=== PATIENT | male | born 1965 | race Caucasian/White ===

== ENCOUNTER → 2016-11-11 | Outpatient (CLI) | payer OTHER ==
[~2016-11-11] MED LIST: AMLO5TAB2 PO; AMOX500T PO; BACT800T5 PO; OMEP20TA PO; PRED50 PO; RANI150T PO
[2016-11-11 09:21] LABS: HEMATOCRIT 48.1 % (39.0-51.0); MEAN CELL VOLUME 97.9 FL (80.0-100.0); MEAN CORPUSCULAR HEMOGLOBIN 34.8 PG (27.0-34.0); MEAN CORPUSCULAR HGB CONC 35.6 % (32.0-36.0); PLATELET COUNT 214 TH/MM3 (150-450); RED BLOOD COUNT 4.91 MIL/MM3 (4.50-5.90); RED CELL DISTRIBUTION WIDTH 13.6 % (11.6-17.2); REVIEW FLAG FINAL; WHITE BLOOD COUNT 7.1 TH/MM3 (4.0-11.0)
[2016-11-11 10:02] LABS: ALKALINE PHOSPHATASE 122 U/L (45-117); ALT (GPT) 93 U/L (12-78); ANION GAP 9 MEQ/L (5-15); AST (GOT) 47 U/L (15-37); BICARBONATE 26.8 MEQ/L (21.0-32.0); BLOOD UREA NITROGEN 11 MG/DL (7-18); CHLORIDE 102 MEQ/L (98-107); GLOMERULAR FILTRATION RATE 68 ML/MIN (>89); GLUCOSE,FASTING 120 MG/DL (74-99); POTASSIUM 4.4 MEQ/L (3.5-5.1); SODIUM (NA) 138 MEQ/L (136-145); TOTAL BILIRUBIN ADULT 0.7 MG/DL (0.2-1.0)
== END ==
LOC: CLAB 09:01
PROVIDERS: ATTEND Nurse Practitioner Family
DX: F10.10 Alcohol abuse, uncomplicated (principal); K21.9 Gastro-esophageal reflux disease without esophagitis; Z72.0 Tobacco use
CPT/HCPCS: 36415; 80053; 85027

== ENCOUNTER 2016-11-23 21:59 | Emergency (ER) | payer OTHER ==
[~2016-11-23] VITALS: Ht 175.3 cm; Wt 82.0 kg
[~2016-11-23 21:59] MED LIST changes: -AMLO5TAB2 PO; -BACT800T5 PO; -RANI150T PO
[2016-11-23 22:00] VITALS: BP 164/99; PULSE 92; RESP 18; TEMP 97.7; O2SAT 96
--- NOTE | 2016-11-23 22:21 | PD ---
Physical Exam Time Seen by Provider: 22:20 Narrative 51 y/o male presents with foreign body sensation, dysphagia in the lower esophagus. [employer] he was eating some steak when he had the sensation of esophageal obstruction. He has had this issue several times in the past. vss Seen at triage desk. Awaiting bed placement. Data Data Last Documented VS Vital Signs Date Time Temp Pulse Resp B/P Pulse Ox O2 Delivery O2 Flow Rate FiO2 11/23/16 22:00 97.7 92 18 164/99 96 Room Air [facility] Medical Record Reviewed: Yes Supervised Visit with SPENCER: Teto Sarah November 23, 2016 22:21
[2016-11-23] MEDS ORDERED: MORPHINE SULFATE 4 MG/ML INJ IV PUSH ONE (22:30)
[2016-11-23] MEDS ORDERED: GLUCAGON 1 MG/ML VIAL IV PUSH ONE ×2 (22:30→23:30)
[2016-11-23] MEDS ORDERED: ONDANSETRON HCL 4 MG/2 ML VIAL IV PUSH ONE (22:30)
--- NOTE | 2016-11-23 22:34 | PD ---
HPI . Esophageal foreign body Chief Complaint: Foreign Body Time Seen by Provider: 22:24 Travel History International Travel<30 days: No Contact w/Intl Traveler<30days: No Traveled to known affect area: No History of Present Illness HPI Patient presents with an esophageal foreign body. It is a piece of steak. It has been present for 1.5 hours. Symptoms are severe in that he is unable to swallow his own secretions. No exacerbating or relieving factors. Patient reports a previous similar history 5-6. He states that he is sometimes successfully treated conservatively but has had to have an emergent EGD done twice. He states that he has never followed up with gastroenterology following the acute obstruction because he does not have any insurance. He states this been several years since he had an issue with obstruction. PFSH Past Medical History Hx Anticoagulant Therapy: No Diminished Hearing: No Past Surgical History Pacemaker: No Social History Alcohol Use: Yes (OCCASIONAL) Tobacco Use: Yes (1 PPD) Substance Use: Yes (AT TIMES MARIJUANA /COCAINE) Allergies-Medications (Allergen,Severity, Reaction): Coded Allergies: Bee Sting (Verified Allergy, Intermediate, Swelling, 11/23/16) Bactrim (Verified Allergy, Unknown, Itching, 11/23/16) Lortab (Verified Adverse Reaction, Mild, Itching, 11/23/16) Reported Meds & Prescriptions Reported Meds & Active Scripts Active Reported Omeprazole 20 Mg Tab 20 Mg PO EVERY OTHER DAY Review of Systems Except as stated in HPI: all other systems reviewed are Neg Gastrointestinal: Positive: Dysphagia, Other (esophageal obstruction) Physical Exam Narrative GENERAL: Patient is up pacing in the room looking pretty uncomfortable. SKIN: Warm and dry. HEAD: Atraumatic. Normocephalic. EYES: Pupils equal and round. Extraocular movements are intact. NECK: Trachea midline. Neck supple. CARDIOVASCULAR: Regular rate and rhythm. RESPIRATORY: No accessory muscle use. MUSCULOSKELETAL: No obvious deformities. No edema. NEUROLOGICAL: Awake and alert. No obvious cranial nerve deficits. Motor grossly within normal limits. Normal speech. PSYCHIATRIC: Appropriate mood and affect; insight and judgment normal. Data Data Last Documented VS Vital Signs Date Time Temp Pulse Resp B/P Pulse Ox O2 Delivery O2 Flow Rate FiO2 11/23/16 22:00 97.7 92 18 164/99 96 Room Air Orders ^ Saline Lock (11/23/16 22:28) Glucagon Inj (Glucagon Inj) (11/23/16 22:30) Morphine Inj (Morphine Inj) (11/23/16 22:30) Ondansetron Inj (Zofran Inj) (11/23/16 22:30) Glucagon Inj (Glucagon Inj) (11/23/16 23:30) Nitroglycerin Sl (Nitrostat Sl) (11/23/16 23:30) MDM Medical Decision Making Medical Screen Exam Complete: Yes Emergency Medical Condition: Yes Medical Record Reviewed: Yes (records reviewed. He was last seen here in 2011 with an esophageal foreign body which was successfully treated with glucagon 1 mg IV.) Differential Diagnosis Differential diagnosis includes complete esophageal obstruction, partial esophageal obstruction, foreign body sensation Narrative Course Patient presents with an esophageal foreign body. He has been successfully treated in the past with glucagon. Therefore, I will start with glucagon. 11:30 PM Patient has had glucagon 1 mg IV with no relief. Patient reports that he has previously needed more than one dose of glucagon and has also been given glucagon in combination with nitroglycerin with good relief. 12:50 AM The foreign body has failed to pass with the second dose of glucagon and sublingual nitroglycerin. I consulted GI. He will see the patient in the emergency department in the morning for EGD. Physician Communication Physician Communication Dr. Murray will see the patient in ED in the morning for EGD. Diagnosis Primary Impression: Esophageal foreign body Qualified Code: T18.108A - Esophageal foreign body, initial encounter Condition: Stable Josselin Armas MD November 23, 2016 22:34
[2016-11-23] MEDS ORDERED: NITROGLYCERIN 0.4 MG SL 25 TABS/BTL SL ONE (23:30)
[2016-11-24] MEDS ORDERED: SODIUM CHLOR 0.9% 1000 ML INJ 1,000 ML IV SCH (01:00)
[2016-11-24 01:13] LABS: AUTOMATED NEUTROPHIL # 3.6 TH/MM3 (1.8-7.7); BASOPHIL # 0.1 TH/MM3 (0-0.2); BASOPHIL % 1.2 % (0.0-2.0); EOSINOPHIL # 0.4 TH/MM3 (0-0.4); EOSINOPHIL % 5.2 % (0.0-4.0); HEMATOCRIT 45.4 % (39.0-51.0); HEMO FLAGS DIFF FINAL; LYMPH % 39.1 % (9.0-44.0); LYMPHOCYTE # 2.9 TH/MM3 (1.0-4.8); MEAN CELL VOLUME 98.1 FL (80.0-100.0); MEAN CORPUSCULAR HGB CONC 35.7 % (32.0-36.0); MONO % 6.2 % (0.0-8.0); NEUT % 48.3 % (16.0-70.0); PLATELET COUNT 198 TH/MM3 (150-450); RED BLOOD COUNT 4.63 MIL/MM3 (4.50-5.90); RED CELL DISTRIBUTION WIDTH 13.3 % (11.6-17.2); WHITE BLOOD COUNT 7.5 TH/MM3 (4.0-11.0)
[2016-11-24 01:14] VITALS: BP 133/93; PULSE 86; RESP 18; O2SAT 99
[2016-11-24 01:48] LABS: POTASSIUM 3.3 MEQ/L (3.5-5.1)
[2017-01-20] MEDS ORDERED: RANI150T PO (09:10)
[2017-01-20] MEDS ORDERED: AMLO5TAB2 PO (09:11)
== END 2016-11-24 03:43 | disposition home or self-care (01) ==
LOC: NEPC 21:59 → NEPD 11-24 03:43
DX: T18.108A Unspecified foreign body in esophagus causing other injury, initial encounter (principal); F17.210 Nicotine dependence, cigarettes, uncomplicated
CPT/HCPCS: 80048; 85025; 96374; 96375; 96376; 99283; J1610; J2270; J2405; J7030

== ENCOUNTER 2017-06-10 14:27 | Emergency (ER) | payer OTHER ==
[~2017-06-10] VITALS: Ht 175.3 cm; Wt 86.0 kg
[~2017-06-10 14:27] MED LIST changes: -AMOX500T PO; +CYCL5TAB PO; +LISI-515 PO; -OMEP20TA PO; +OMEP20TA93 PO; -PRED50 PO; +VARE1PAK3 PO
[2017-06-10 14:29] VITALS: BP 119/79; PULSE 95; RESP 20; TEMP 99.3; O2SAT 98
[2017-06-10] MEDS ORDERED: NABU1TAB37 PO (15:40)
--- NOTE | 2017-06-10 15:44 | PD ---
HPI . Knee pain Chief Complaint: Pain: Acute or Chronic Time Seen by Provider: 15:36 Travel History International Travel<30 days: No Contact w/Intl Traveler<30days: No Traveled to known affect area: No History of Present Illness HPI Patient presents with the chief complaint of bilateral knee pain, right worse than left. He states that it is chronic. It became acutely worse last night. He rates it 10/10. He states that he treated it with a bag of frozen vegetables with no real relief. He did not take any oral medication. There has been no recent trauma. He reports a history of chronic knee pain secondary to old injuries. [facility] Past Medical History Medical History: Denies Significant Hx Hx Anticoagulant Therapy: No Diminished Hearing: No Immunizations Current: No Past Surgical History Surgical History: No Previous Surgery Pacemaker: No Social History Alcohol Use: Yes (OCCASIONAL) Tobacco Use: Yes (1 PPD) Substance Use: Yes (AT TIMES MARIJUANA /COCAINE) Allergies-Medications (Allergen,Severity, Reaction): Coded Allergies: bee venom protein (honey bee) (Unverified Allergy, Intermediate, Swelling , 03/18/17) sulfamethoxazole (Unverified Allergy, Unknown, Itching, 03/18/17) trimethoprim (Unverified Allergy, Unknown, Itching, 03/18/17) acetaminophen (Unverified Adverse Reaction, Mild, Itching, 03/18/17) hydrocodone (Unverified Adverse Reaction, Mild, Itching, 03/18/17) Reported Meds & Prescriptions Reported Meds & Active Scripts Active Nabumetone 500 Mg Tab 500 Mg PO BID Lisinopril 20 Mg Tab 20 Mg PO DAILY Review of Systems Musculoskeletal: Positive: Arthralgias Physical Exam Narrative GENERAL: Awake and alert and in no acute distress. SKIN: Warm and dry. HEAD: Normocephalic/atraumatic. EYES: Pupils are equal. Extraocular movements are intact. NECK: Normal range of motion. CARDIOVASCULAR: Regular rate and rhythm. RESPIRATORY: Nonlabored respirations. MUSCULOSKELETAL: Atraumatic. Knees are not swollen. They do not seem tender to palpation. Flexion-extension is normal. No crepitus palpated. NEUROLOGICAL: Nonfocal. PSYCHIATRIC: Appropriate mood and affect. Data Data Last Documented VS Vital Signs Date Time Temp Pulse Resp B/P (MAP) Pulse Ox O2 Delivery O2 Flow Rate FiO2 06/10/17 14:29 99.3 95 20 119/79 (92) 98 Room Air Orders Orders Ed Discharge Order (06/10/17 15:41) MDM Medical Decision Making Medical Screen Exam Complete: Yes Emergency Medical Condition: Yes Differential Diagnosis Differential diagnosis of joint pain includes but is not limited to arthritis, gout, sprain/strain, fracture, dislocation, bursitis Narrative Course This patient presents with the chief complaint of bilateral knee pain. It is atraumatic. Exam is unremarkable. I will discharge him with a prescription for Relafen and with instructions to follow up at the [facility] clinic for further treatment as needed Diagnosis Primary Impression: Bilateral knee pain Qualified Codes: M25.561 - Pain in right knee; M25.562 - Pain in left knee; G89.29 - Other chronic pain Referrals: [facility] 1 week Patient Instructions: General Instructions, Knee Pain (ED) Departure Forms: Tests/Procedures Scripts Nabumetone (Nabumetone) 500 Mg Tab 500 MG PO BID for Pain-Inflammation, #60 TAB 0 Refills Prov: Josselin Armas MD 06/10/17 Disposition: 01 DISCHARGE HOME Condition: Stable Josselin Armas MD Jun 10, 2017 15:44
== END 2017-06-10 16:03 | disposition home or self-care (01) ==
LOC: NEPK 14:27 → NETRI 16:03
DX: M25.562 Pain in left knee (principal); M25.561 Pain in right knee; G89.29 Other chronic pain; F17.210 Nicotine dependence, cigarettes, uncomplicated; Z79.899 Other long term (current) drug therapy; Z88.2 Allergy status to sulfonamides; Z88.6 Allergy status to analgesic agent; Z88.5 Allergy status to narcotic agent; Z88.8 Allergy status to other drugs, medicaments and biological substances
CPT/HCPCS: 99283

== ENCOUNTER 2017-06-12 14:29 | Emergency (ER) | payer OTHER ==
[~2017-06-12] VITALS: Ht 175.3 cm; Wt 85.5 kg
[~2017-06-12 14:29] MED LIST changes: -CYCL5TAB PO; +NABU1TAB37 PO; -OMEP20TA93 PO; -VARE1PAK3 PO
[2017-06-12 14:31] VITALS: BP 138/90; PULSE 105; RESP 19; TEMP 98.3; O2SAT 96
[2017-06-12] MEDS ORDERED: SODIUM CHLORIDE 0.9% FLUSH 10 ML FLUSH IVF PRN (15:00)
[2017-06-12] MEDS ORDERED: methylPREDNISolone SOD SUCC 125 MG/2 ML VIAL IV PUSH ONE (15:00)
[2017-06-12] MEDS: RESP: ALBUTEROL 2.5 MG/IPRATROPIUM 0.5 MG NEB (SCH) INH (15:06)
--- NOTE | 2017-06-12 15:28 | PD ---
HPI . Chest cold Chief Complaint: Cold / Flu Symptoms Time Seen by Provider: 14:57 Travel History International Travel<30 days: No Contact w/Intl Traveler<30days: No Traveled to known affect area: No History of Present Illness HPI This patient presents with a chief complaint of a chest cold. Onset was about a week ago. He states that his been much worse for the last couple of days. He reports no sputum production. He does have subjective fevers and chills. He has been treating it with [id number] medications without relief. He denies any known history of COPD but states that he is a smoker. PFSH Past Medical History Hx Anticoagulant Therapy: No Cardiovascular Problems: Yes Chemotherapy: No Cerebrovascular Accident: No Diabetes: No Diminished Hearing: No Hypertension: Yes Respiratory: No Immunizations Current: No Tetanus Vaccination: < 5 Years Influenza Vaccination: No Past Surgical History Pacemaker: No Tonsillectomy: Yes Social History Alcohol Use: Yes (OCCASIONAL) Tobacco Use: Yes (1 PPD) Substance Use: Yes (AT TIMES MARIJUANA /COCAINE) Allergies-Medications (Allergen,Severity, Reaction): Coded Allergies: bee venom protein (honey bee) (Verified Allergy, Intermediate, Swelling, 06/12/17) sulfamethoxazole (Verified Allergy, Unknown, Itching, 06/12/17) trimethoprim (Verified Allergy, Unknown, Itching, 06/12/17) acetaminophen (Verified Adverse Reaction, Mild, Itching, 06/12/17) hydrocodone (Verified Adverse Reaction, Mild, Itching, 06/12/17) Reported Meds & Prescriptions Reported Meds & Active Scripts Active Lisinopril 20 Mg Tab 20 Mg PO DAILY Review of Systems Except as stated in HPI: all other systems reviewed are Neg General / Constitutional: Positive: Fever, Chills Respiratory: Positive: Cough Physical Exam Narrative GENERAL: Awake and alert and in no acute distress. SKIN: Warm and dry. Good skin color. HEAD: Normocephalic/atraumatic. EYES: Pupils are equal. Extraocular movements are intact. NECK: Normal range of motion. CARDIOVASCULAR: Regular rate and rhythm. RESPIRATORY: Nonlabored respirations. I do not hear any wheezing, rales or rhonchi. MUSCULOSKELETAL: Atraumatic. NEUROLOGICAL: Nonfocal. PSYCHIATRIC: Appropriate mood and affect. Data Data Last Documented VS Vital Signs Date Time Temp Pulse Resp B/P (MAP) Pulse Ox O2 Delivery O2 Flow Rate FiO2 06/12/17 15:00 98 20 96 Room Air 06/12/17 14:31 98.3 138/90 (106) Orders Orders Complete Blood Count With Diff (06/12/17 14:58) Basic Metabolic Panel (Bmp) (06/12/17 14:58) Iv Access Insert/Monitor (06/12/17 14:58) Chest, Single Ap (06/12/17 14:58) Sodium Chloride 0.9% Flush (Ns Flush) (06/12/17 15:00) Methylprednisolone So Succ Inj (Solumedr (06/12/17 15:00) Albuterol-Ipratropium Neb (Duoneb Neb) (06/12/17 15:00) Labs Laboratory Tests Test 06/12/17 15:00 White Blood Count 4.4 TH/MM3 Red Blood Count 4.80 MIL/MM3 Hemoglobin 16.5 GM/DL Hematocrit 47.2 % Mean Corpuscular Volume 98.4 FL Mean Corpuscular Hemoglobin 34.4 PG Mean Corpuscular Hemoglobin Concent 35.0 % Red Cell Distribution Width 14.2 % Platelet Count 122 TH/MM3 Mean Platelet Volume 7.9 FL Neutrophils (%) (Auto) 66.3 % Lymphocytes (%) (Auto) 19.1 % Monocytes (%) (Auto) 12.6 % Eosinophils (%) (Auto) 1.6 % Basophils (%) (Auto) 0.4 % Neutrophils # (Auto) 2.9 TH/MM3 Lymphocytes # (Auto) 0.8 TH/MM3 Monocytes # (Auto) 0.6 TH/MM3 Eosinophils # (Auto) 0.1 TH/MM3 Basophils # (Auto) 0.0 TH/MM3 CBC Comment DIFF FINAL Differential Comment Blood Urea Nitrogen 9 MG/DL Creatinine 1.08 MG/DL Random Glucose 134 MG/DL Calcium Level 8.7 MG/DL Sodium Level 131 MEQ/L Potassium Level 4.1 MEQ/L Chloride Level 97 MEQ/L Carbon Dioxide Level 23.1 MEQ/L Anion Gap 11 MEQ/L Estimat Glomerular Filtration Rate 71 ML/MIN MDM Medical Decision Making Medical Screen Exam Complete: Yes Emergency Medical Condition: Yes Differential Diagnosis Differential diagnosis includes but is not limited to viral respiratory illness , bronchitis, pneumonia, allergies, CHF, asthma/COPD. Narrative Course This patient presents complaining with a cough. He is a smoker. I will treat him with duo nebs and Solu-Medrol. Chest x-ray, etc. are pending. CBC & BMP Diagram 06/12/17 15:00 Calcium Level 8.7 Last Impressions Chest X-Ray 06/12/17 1458 Signed Impressions: Service Date/Time: Wednesday, June 12, 2017 15:41 - CONCLUSION: Normal examination. Baldo Rubin MD Patient will be treated for bronchitis. Since he is a smoker, he will be treated with Zithromax. Diagnosis Primary Impression: Bronchitis Patient Instructions: Acute Bronchitis (DC), General Instructions Med/Other Pt SpecificInfo: Prescription(s) given Scripts Albuterol 18 GM Inh (Ventolin Hfa 18 GM Inh) 90 Mcg/Act Aer 2 PUFF INH Q4H Y for SHORTNESS OF BREATH, #1 INHALER 0 Refills Prov: Josselin rAmas MD 06/12/17 Prednisone (48) 10 mg tab Dose Pack (Prednisone (48) 10 mg tab Dose Pack) 10 Mg Dspk 10 MG PO DIRECTED for Inflammation, #1 DSPK 0 Refills Prov: Josselin Armas MD 06/12/17 Azithromycin (Zithromax Z-Seven) 250 Mg Dspk 250 MG PO DIRECTED for Infection, #1 DSPK 0 Refills 500 MG (2 tabs) day 1, then 1 tab days 2-5. Prov: Josselin Armas MD 06/12/17 Disposition: 01 DISCHARGE HOME Condition: Stable Josselin Armas MD Jun 12, 2017 15:28
[2017-06-12 15:32] LABS: AUTOMATED NEUTROPHIL # 2.9 TH/MM3 (1.8-7.7); BASOPHIL % 0.4 % (0.0-2.0); EOSINOPHIL # 0.1 TH/MM3 (0-0.4); EOSINOPHIL % 1.6 % (0.0-4.0); HEMATOCRIT 47.2 % (39.0-51.0); HEMO FLAGS DIFF FINAL; LYMPH % 19.1 % (9.0-44.0); LYMPHOCYTE # 0.8 TH/MM3 (1.0-4.8); MEAN CELL VOLUME 98.4 FL (80.0-100.0); MEAN CORPUSCULAR HEMOGLOBIN 34.4 PG (27.0-34.0); MONO % 12.6 % (0.0-8.0); NEUT % 66.3 % (16.0-70.0); PLATELET COUNT 122 TH/MM3 (150-450); RED CELL DISTRIBUTION WIDTH 14.2 % (11.6-17.2); WHITE BLOOD COUNT 4.4 TH/MM3 (4.0-11.0)
--- NOTE | 2017-06-12 15:54 | RADRPT ---
EXAM DATE/TIME: 06/12/2017 15:41 [place] COMPARISON: No previous studies available for comparison. INDICATIONS : Shortness of breath. MEDICAL HISTORY : Hypertension. SURGICAL HISTORY : None. ENCOUNTER: Initial ACUITY: 1 week PAIN SCORE: 0/10 LOCATION: Bilateral chest FINDINGS: A single view of the chest demonstrates the lungs to be symmetrically aerated without evidence of mas s, infiltrate or effusion. The cardiomediastinal contours are unremarkable. Osseous structures are intact. CONCLUSION: Normal examination. Baldo Rubin MD on June 12, 2017 at 15:52 Board Certified Radiologist. This report was verified electronically.
[2017-06-12 16:01] LABS: BICARBONATE 23.1 MEQ/L (21.0-32.0); POTASSIUM 4.1 MEQ/L (3.5-5.1)
[2017-06-12] MEDS ORDERED: ZITHTAB PO (16:22)
[2017-06-12] MEDS ORDERED: VENTAER INH (16:22)
[2017-06-12] MEDS ORDERED: PRED10PA2 PO (16:22)
[2017-06-12 16:35] VITALS: BP 124/83; TEMP 97.9
== END 2017-06-12 16:35 | disposition home or self-care (01) ==
LOC: NEPC 14:29
DX: J40 Bronchitis, not specified as acute or chronic (principal); I10 Essential (primary) hypertension; F17.210 Nicotine dependence, cigarettes, uncomplicated
CPT/HCPCS: 71010; 80048; 85025; 94640; 94664; 96374; 99284; J2930

== ENCOUNTER 2017-06-21 09:27 | Emergency (ER) | payer OTHER ==
[~2017-06-21] VITALS: Ht 175.3 cm; Wt 84.0 kg
[~2017-06-21 09:27] MED LIST changes: -NABU1TAB37 PO; +PRED10PA2 PO; +VENTAER INH; +ZITHTAB PO
[2017-06-21 09:34] VITALS: BP 158/88; PULSE 82; RESP 12; TEMP 98.2; O2SAT 99
[2017-06-21 09:44] VITALS: BP 131/85; PULSE 82; RESP 20; TEMP 97.5; O2SAT 98
[2017-06-21] MEDS ORDERED: NABU1TAB37 PO (09:44)
[2017-06-21] MEDS ORDERED: TRAM50TA PO (10:38)
--- NOTE | 2017-06-21 10:47 | PD ---
HPI Chief Complaint: Pain: Acute or Chronic Time Seen by Provider: 09:51 Travel History International Travel<30 days: No Contact w/Intl Traveler<30days: No Traveled to known affect area: No History of Present Illness HPI This patient complains of pain in his joints. Duration is several weeks. He has pain in both hips and both knees and both ankles. No injury. No fever. He denies any chronic or metabolic disease. He is an alcoholic and drinking 6- 12 drinks daily. Severity is described as moderate. Pain is worse with weightbearing. He has no problem with joints of the hands or arms PFSH Past Medical History Hx Anticoagulant Therapy: No Cardiovascular Problems: Yes Chemotherapy: No Cerebrovascular Accident: No Diabetes: No Diminished Hearing: No Hypertension: Yes Respiratory: No Immunizations Current: No Influenza Vaccination: No Past Surgical History Pacemaker: No Tonsillectomy: Yes Social History Alcohol Use: Yes (OCCASIONAL) Tobacco Use: Yes (1 PPD) Substance Use: Yes (AT TIMES MARIJUANA /COCAINE) Allergies-Medications (Allergen,Severity, Reaction): Coded Allergies: bee venom protein (honey bee) (Verified Allergy, Intermediate, Swelling, 06/21/17) sulfamethoxazole (Verified Allergy, Unknown, Itching, 06/21/17) trimethoprim (Verified Allergy, Unknown, Itching, 06/21/17) acetaminophen (Verified Adverse Reaction, Mild, Itching, 06/21/17) hydrocodone (Verified Adverse Reaction, Mild, Itching, 06/21/17) Reported Meds & Prescriptions Reported Meds & Active Scripts Active Tramadol (Tramadol HCl) 50 Mg Tab 50 Mg PO Q6H PRN Ventolin Hfa 18 GM Inh (Albuterol Sulfate) 90 Mcg/Act Aer 2 Puff INH Q4H PRN Prednisone (48) 10 mg tab Dose Pack (Prednisone) 10 Mg Dspk 10 Mg PO DIRECTED Zithromax Z-Seven (Azithromycin) 250 Mg Dspk 250 Mg PO DIRECTED 500 MG (2 tabs) day 1, then 1 tab days 2-5. Lisinopril 20 Mg Tab 20 Mg PO DAILY Reported Nabumetone 500 Mg Tab 500 Mg PO BID Review of Systems General / Constitutional: No: Fever Eyes: No: Visual changes HENT: No: Headaches Cardiovascular: No: Chest Pain or Discomfort Respiratory: No: Shortness of Breath Gastrointestinal: No: Abdominal Pain Genitourinary: No: Dysuria Musculoskeletal: Positive: Arthralgias, No: Pain Skin: No Rash Neurologic: No: Weakness Psychiatric: Positive: Substance Abuse, No: Depression Endocrine: No: Polydipsia Hematologic/Lymphatic: No: Easy Bruising Physical Exam Narrative GENERAL: Well-nourished, well-developed patient in no apparent distress. SKIN: Focused skin assessment reveals no rash and nodules. Skin is Warm and dry. HEAD: Atraumatic. Normocephalic. EYES: Pupils equal and round. No scleral icterus. No injection or drainage. ENT: No nasal bleeding or discharge. Mucous membranes pink and moist. NECK: Trachea midline. No JVD. CARDIOVASCULAR: Regular rate and rhythm. No murmur appreciated. RESPIRATORY: No accessory muscle use. Clear to auscultation. Breath sounds equal bilaterally. GASTROINTESTINAL: Abdomen soft, non-tender, nondistended. Hepatic and splenic margins not palpable. MUSCULOSKELETAL: No obvious deformities. No clubbing. No cyanosis. No edema. All his joints look normal. They have good range of motion without active inflammation NEUROLOGICAL: Awake and alert. No obvious cranial nerve deficits. Motor grossly within normal limits. Normal speech. PSYCHIATRIC: Appropriate mood and affect; insight and judgment normal. Data Data Last Documented VS Vital Signs Date Time Temp Pulse Resp B/P (MAP) Pulse Ox O2 Delivery O2 Flow Rate FiO2 06/21/17 09:44 97.5 82 20 131/85 (100) 98 Room Air [facility] Medical Decision Making Medical Screen Exam Complete: Yes Emergency Medical Condition: Yes Medical Record Reviewed: Yes Differential Diagnosis Arthralgia, sciatica, inflammatory arthritis Narrative Course I have reviewed the patient's electronic medical record. There are no objective findings regarding his joint exam. Etiology of his polyarthralgias is unclear. Short term tramadol written. Advised him to work on his alcohol problem Diagnosis Primary Impression: Polyarthralgia Additional Impression: Alcohol abuse Additional Instructions: The patient was advised to follow up with their physician and return if they worsen. The patient was warned about potential sedation for the medications they will receive on prescription. Recommend [facility] alcohol rehabilitation services Med/Other Pt SpecificInfo: Prescription(s) given Scripts Tramadol (Tramadol) 50 Mg Tab 50 MG PO Q6H Y for PAIN, #20 TAB 0 Refills Prov: Elliot Mueller MD 06/21/17 Disposition: 01 DISCHARGE HOME Condition: Stable Elliot Mueller MD Jun 21, 2017 10:47
== END 2017-06-21 11:24 | disposition home or self-care (01) ==
LOC: NEPD 09:27
DX: M25.552 Pain in left hip (principal); M25.551 Pain in right hip; M25.562 Pain in left knee; M25.561 Pain in right knee; M25.572 Pain in left ankle and joints of left foot; M25.571 Pain in right ankle and joints of right foot; F10.10 Alcohol abuse, uncomplicated; I10 Essential (primary) hypertension; F17.200 Nicotine dependence, unspecified, uncomplicated
CPT/HCPCS: 99283